=== PATIENT | female | born 1960 | race Caucasian/White ===

== ENCOUNTER 2017-11-23 06:26 | Day surgery (SDC) | payer BC ==
[~2017-11-23 06:26] MED LIST: Lactated Ringers 1,000 ML IV SCH
[2017-11-23] MEDS ORDERED: Propofol 200 MG/20 ML SDV ONE (07:47)
[2017-11-23] MEDS ORDERED: fentaNYL 100 MCG/2 ML SDV ONE (07:47)
--- NOTE | 2017-11-23 09:20 | OR ---
PREOPERATIVE DIAGNOSES: 1. Positive FIT test. 2. Family history of colon cancer - father. POSTOPERATIVE DIAGNOSIS: Normal colonoscopic exam. PROCEDURE PROPOSED: Total flexible colonoscopy. PROCEDURE DONE: Total flexible colonoscopy. INDICATION: This is a 57-year-old female who was found to have a positive FIT test. She also has a family history of father with colon cancer and it has been 5 years since her last exam, so she was recommended to come in for evaluation. TECHNIQUE: The patient brought to the endoscopy suite, placed in left lateral decubitus position. She was sedated per REVERBERATORY FURNACE OPERATOR with propofol. The flexible video colonoscope was then passed transanally and under visualization, advanced to the cecum. Examination revealed a normal ascending, transverse, descending, sigmoid, and rectal colon. There was no evidence of any polyps, diverticulosis, colitis, or any significant hemorrhoids noted. The scope was then withdrawn. The patient tolerated procedure well. FINAL IMPRESSION: Essentially normal colonoscopic exam. PLAN: The patient is reassured. [place] that she should continue with colonic surveillance every 5 years hereafter due to her family history of colon cancer. SCM: 11/23/2017 08:12:43 MODL: 11/23/2017 08:46:07 /[id number]
== END 2017-11-23 09:05 | disposition home or self-care (01) ==
LOC: VM.SDS 06:26
PROVIDERS: ATTEND Surgery
DX: R19.5 Other fecal abnormalities (principal); E78.5 Hyperlipidemia, unspecified; E55.9 Vitamin D deficiency, unspecified; E11.9 Type 2 diabetes mellitus without complications; E83.52 Hypercalcemia; G47.33 Obstructive sleep apnea (adult) (pediatric); I10 Essential (primary) hypertension; M81.0 Age-related osteoporosis without current pathological fracture; Z79.84 Long term (current) use of oral hypoglycemic drugs; Z79.899 Other long term (current) drug therapy; Z86.010 Personal history of colon polyps; Z80.0 Family history of malignant neoplasm of digestive organs; Z88.0 Allergy status to penicillin; Z88.8 Allergy status to other drugs, medicaments and biological substances; Z90.11 Acquired absence of right breast and nipple; Z90.710 Acquired absence of both cervix and uterus; Z98.890 Other specified postprocedural states; Z87.891 Personal history of nicotine dependence
CPT/HCPCS: 45378; 82962; J2704; J3010; J7120

== ENCOUNTER 2017-12-15 19:02 | Emergency (ER) | payer BC ==
[2017-12-15] MEDS ORDERED: Sodium Chloride 0.9% 10 ML Syringe FLUSH PRN (19:15)
[2017-12-15] MEDS ORDERED: Lactated Ringers 1,000 ML IV ONE (19:16)
--- NOTE | 2017-12-15 19:28 | EDM.PDOC ---
ED HPI GENERAL MEDICAL PROBLEM - General Chief Complaint: General Stated Complaint: headache, sore throat, fever Time Seen by Provider: 12/15/17 19:07 Source of Information: Reports: Patient, RN, RN Notes Reviewed History Limitations: Reports: No Limitations - History of Present Illness INITIAL COMMENTS - FREE TEXT/NARRATIVE: Patient presents to the ED at [facility] with a one day history of a sore throat, and a headache that started today. She also has a dry, nonproductive cough. She states she has night sweats. She feels warm but did not take her temperature at home. No close family members or contacts with similar symptoms. Patient denies any N/V/D. She feels somewhat SOB during her coughing spells. She is trying to stay well hydrated with good PO fluid intake. No chest pain. No focal neurological deficits. She denies any eye or ear symptoms. No sinus pressure or pain. Onset Date: 12/14/17 Headache Pain Score (Numeric/FACES): 5 - Related Data Allergies Allergy/AdvReac Type Severity Reaction Status Date / Time lisinopril Allergy Cough Verified 12/15/17 19:10 Penicillins Allergy Itching Verified 12/15/17 19:10 Home Meds: Home Meds 5-Hydroxytryptophan [5-Htp] 200 mg PO DAILY 11/15/17 [History] Aspirin [Halfprin] 81 mg PO DAILY 11/15/17 [History] Biotin 5 g PO BID 11/15/17 [History] Cholecalciferol (Vitamin D3) [Vitamin D3] 400 unit PO DAILY 11/15/17 [History] Cyanocobalamin (Vitamin B-12) [Vitamin B-12] 1,000 mcg PO DAILY 11/15/17 [ History] Flaxseed Oil [Flaxseed] 1,000 mg PO DAILY 11/15/17 [History] Losartan [Cozaar] 100 mg PO DAILY 11/15/17 [History] Multivitamin [Multivitamins] 1 tab PO DAILY 11/15/17 [History] Simvastatin [Zocor] 10 mg PO BEDTIME 11/15/17 [History] glipiZIDE [Glucotrol XL] 5 mg PO DAILY 11/15/17 [History] metFORMIN HCl [Metformin HCl] 1,000 mg PO BID 11/15/17 [History] Empagliflozin [Jardiance] 1 tab PO DAILY 12/15/17 [History] Past Medical History Cardiovascular History: Reports: High Cholesterol, Hypertension Respiratory History: Reports: Sleep Apnea, Other (See Below) Other Respiratory History: reactive airway not asthma Gastrointestinal History: Reports: Colon Polyp, Other (See Below) Other Gastrointestinal History: + FIT. fm hx gi malignacy. 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 Dermatologic History: Reports: None, Other (See Below) Other Dermatologic History: skin tag - Past Surgical History HEENT Surgical History: Reports: LASIK Cardiovascular Surgical History: Reports: None GI Surgical History: Reports: Colonoscopy Female Surgical History: Reports: Hysterectomy Endocrine Surgical History: Reports: None Neurological Surgical History: Reports: None Musculoskeletal Surgical History: Reports: None Oncologic Surgical History: Reports: Mastectomy Dermatological Surgical History: Reports: Other (See Below) Social & Family History - Tobacco Use Smoking Status *Q: Never Smoker ED ROS GENERAL - Review of Systems Review Of Systems: ROS reveals no pertinent complaints other than HPI. ED EXAM, GENERAL - Physical Exam Exam: See Below Exam Limited By: No Limitations General Appearance: Alert, No Apparent Distress Eye Exam: Bilateral Eye: Normal Inspection (watery discharge), PERRL Ears: Normal External Exam, Normal Canal, Normal TMs Ear Exam: Bilateral Ear: TM normal Nose: Normal Inspection Throat/Mouth: Other (posterior oropharyngeal erythema with mild exudate on the right) Neck: Supple, Lymphadenopathy (L), Lymphadenopathy (R) Respiratory/Chest: No Respiratory Distress, Rhonchi (scattered), Other (lung sounds are very coarse throughout). No: Wheezing Cardiovascular: Normal Peripheral Pulses, No Edema, Tachycardia Peripheral Pulses: 2+: Radial (L), Radial (R) GI/Abdominal: Normal Bowel Sounds, Soft, Non-Tender Neurological: Alert, Oriented Skin Exam: Warm, Dry, Intact, Normal Color Course - Vital Signs Last Recorded V/S: Last Vital Signs Temp 39.2 C H 12/15/17 19:07 Pulse 127 H 12/15/17 19:07 Resp 18 12/15/17 19:07 BP 177/96 H 12/15/17 19:07 Pulse Ox 95 12/15/17 19:07 - Orders/Labs/Meds Orders: Active Orders 24 hr Category Date Time Status Chest 2V [CR] Stat Exams 12/15/17 19:12 Taken CULTURE BLOOD [BC] Stat Lab 12/15/17 19:13 Ordered CULTURE BLOOD [BC] Stat Lab 12/15/17 20:17 Results INFLUENZA A+B AG SCREEN [RM] Stat Lab 12/15/17 19:15 Ordered LACTIC ACID [CHEM] Stat Lab 12/15/17 19:13 Ordered STREP SCRN A RAPID W CULT CONF [RM] Stat Lab 12/15/17 19:15 Ordered UA W/MICROSCOPIC [URIN] Stat Lab 12/15/17 19:26 Ordered Sodium Chloride 0.9% [Saline Flush] Med 12/15/17 19:15 Active 10 ml FLUSH ASDIRECTED PRN Blood Culture x2 Reflex Set [OM.PC] Stat Oth 12/15/17 19:13 Ordered Peripheral IV Insertion Adult [OM.PC] Routine Oth 12/15/17 19:15 Ordered Medication Orders Sodium Chloride (Saline Flush) 10 ml FLUSH ASDIRECTED PRN PRN Reason: Keep Vein Open Labs: Laboratory Tests 12/15/17 12/15/17 12/15/17 Range/Units 19:26 20:17 20:17 WBC 19.5 H (4.0-10.0) x10^3/uL RBC 4.54 (4.00-5.50) x10^6/uL Hgb 13.3 (12.0-16.0) g/dL Hct 41.1 (33.0-47.0) % MCV 90.5 (78.0-93.0) fL MCH 29.3 (26.0-32.0) pg MCHC 32.4 (32.0-36.0) g/dL RDW Coeff of Mukul 13.7 (10.0-15.0) % Plt Count 208 (130-400) x10^3/uL Add Manual Diff Yes Neutrophils % (Manual) 82 H (50-80) % Band Neutrophils % 4 (0-6) % Lymphocytes % (Manual) 7 L (25-50) % Monocytes % (Manual) 5 (2-11) % Eosinophils % (Manual) 2 (0-4) % Vacuolated Monocytes 2+ moderate H Toxic Granulation Rare Platelet Estimate Adequate Giant Platelets Rare H Sodium 140 (136-145) mmol/L Potassium 4.4 (3.5-5.1) mmol/L Chloride 102 (98-107) mmol/L Carbon Dioxide 22 (21-32) mmol/L Anion Gap 20.4 H (10-20) mmol/L BUN 10 (7-18) mg/dL Creatinine 0.8 (0.55-1.02) mg/dL Est Cr Clr Drug Dosing TNP Estimated GFR (MDRD) > 60 Glucose 151 H (74-106) mg/dL Calcium 10.1 (8.5-10.1) mg/dL C-Reactive Protein 3.6 H (<=0.9) mg/dL Urine Color Light yellow (YELLOW) Urine Appearance Clear (CLEAR) Urine pH 5.0 (5.0-8.0) Ur Specific [place] <=1.005 Urine Protein Negative (NEGATIVE) mg/dL Urine Glucose (UA) 500 H (NEGATIVE) mg/dL Urine Ketones Trace H (NEGATIVE) mg/dL Urine Occult Blood Negative (NEGATIVE) Urine Nitrite Negative (NEGATIVE) Urine Bilirubin Negative (NEGATIVE) Urine Urobilinogen 0.2 (0.2) EU/dL Ur Leukocyte Esterase Trace H (NEGATIVE) Urine RBC 0-5 (NOT SEEN) /HPF Urine WBC 0-5 (NOT SEEN) /HPF Ur Squamous Epith Cells Rare (NEGATIVE) /HPF Urine Bacteria Rare (NEGATIVE) /HPF Urine Mucus Not seen (NEGATIVE) /LPF Meds: Medications Generic Name Dose Route Start Last Admin Trade Name Freq PRN Reason Stop Dose Admin Sodium Chloride 10 ml 12/15/17 19:15 Saline Flush FLUSH ASDIRECTED PRN Keep Vein Open Discontinued Medications Generic Name Dose Route Start Last Admin Trade Name Freq PRN Reason Stop Dose Admin Ceftriaxone Sodium 1 gm/ 0 gm 12/15/17 20:01 Lidocaine HCl 2.1 ml IM 12/15/17 20:02 ONETIME ONE Gentamicin Sulfate 80 mg 12/15/17 20:03 12/15/17 20:09 Gentamicin IM 12/15/17 20:04 80 mg ONETIME ONE Administration Lactated Ringer's 1,000 mls @ 999 mls/hr 12/15/17 19:16 Ringers, Lactated IV 12/15/17 20:16 ONETIME ONE - Radiology Interpretation Free Text/Narrative:: CXR: No acute process - see scanned report in EMR Departure - Departure Time of Disposition: 20:59 Disposition: Home, Self-Care 01 Condition: Good Clinical Impression: Strep pharyngitis - Discharge Information Instructions: Strep Throat Referrals: Lou Hoskins MD [Primary Care Provider] - Forms: ED Department Discharge Additional Instructions: 1. Stay well hydrated and rest 2. Take antibiotics for the full coarse, even if you feel better 3. LOTS of water 4. Change out and buy a new toothbrush 5. See your Primary as symptoms warrant 6. Call us with any questions/concerns - Problem List Review Problem List Initiated/Reviewed/Updated: Yes - My Orders Last 24 Hours: My Active Orders 12/15/17 19:12 Chest 2V [CR] Stat 12/15/17 19:13 CULTURE BLOOD [BC] Stat LACTIC ACID [CHEM] Stat Blood Culture x2 Reflex Set [OM.PC] Stat 12/15/17 19:15 INFLUENZA A+B AG SCREEN [RM] Stat STREP SCRN A RAPID W CULT CONF [RM] Stat Sodium Chloride 0.9% [Saline Flush] 10 ml FLUSH ASDIRECTED PRN Peripheral IV Insertion Adult [OM.PC] Routine 12/15/17 19:26 UA W/MICROSCOPIC [URIN] Stat 12/15/17 20:17 CULTURE BLOOD [BC] Stat - Assessment/Plan Last 24 Hours: My Active Orders 12/15/17 19:12 Chest 2V [CR] Stat 12/15/17 19:13 CULTURE BLOOD [BC] Stat LACTIC ACID [CHEM] Stat Blood Culture x2 Reflex Set [OM.PC] Stat 12/15/17 19:15 INFLUENZA A+B AG SCREEN [RM] Stat STREP SCRN A RAPID W CULT CONF [RM] Stat Sodium Chloride 0.9% [Saline Flush] 10 ml FLUSH ASDIRECTED PRN Peripheral IV Insertion Adult [OM.PC] Routine 12/15/17 19:26 UA W/MICROSCOPIC [URIN] Stat 12/15/17 20:17 CULTURE BLOOD [BC] Stat
[2017-12-15] MEDS ORDERED: cefTRIAXone 1 GM, Lidocaine 1% 2.1 ML IM ONE ×2 (20:01)
[2017-12-15] MEDS ORDERED: Gentamicin 40 MG/ML 2 ML Vial IM ONE (20:03)
[2017-12-15 20:38] LABS: CHLORIDE,CL 102 mmol/L (98-107); SODIUM,NA 140 mmol/L (136-145)
[2017-12-15] MEDS ORDERED: Take Home: Azithromycin 250 MG, 2 Tab Pack PO ONE (21:01)
== END 2017-12-15 21:15 | disposition home or self-care (01) ==
LOC: VM.ED 19:02
DX: J02.0 Streptococcal pharyngitis (principal); I10 Essential (primary) hypertension; Z88.8 Allergy status to other drugs, medicaments and biological substances; Z88.0 Allergy status to penicillin; Z79.82 Long term (current) use of aspirin
CPT/HCPCS: 36415; 71046; 80048; 81001; 85025; 86140; 87040; 87804; 87880; 96372; 99284; A9270; J1580

== ENCOUNTER 2023-02-24 07:14 | Day surgery (SDC) | payer BC ==
[2023-02-24] MEDS ORDERED: Propofol 200 MG/20 ML SDV ONE ×2 (08:00→09:28)
[2023-02-24] MEDS ORDERED: fentaNYL 100 MCG/2 ML SDV ONE (08:00)
== END 2023-02-24 11:05 | disposition home or self-care (01) ==
LOC: VM.SDS 07:14
PROVIDERS: ATTEND Family Medicine
DX: Z12.11 Encounter for screening for malignant neoplasm of colon (principal); D12.4 Benign neoplasm of descending colon; E78.00 Pure hypercholesterolemia, unspecified; I10 Essential (primary) hypertension; E11.9 Type 2 diabetes mellitus without complications; M81.0 Age-related osteoporosis without current pathological fracture; E55.9 Vitamin D deficiency, unspecified; F39 Unspecified mood [affective] disorder; G47.33 Obstructive sleep apnea (adult) (pediatric); E66.9 Obesity, unspecified; Z80.0 Family history of malignant neoplasm of digestive organs; Z90.710 Acquired absence of both cervix and uterus; Z79.84 Long term (current) use of oral hypoglycemic drugs; Z79.899 Other long term (current) drug therapy; Z87.891 Personal history of nicotine dependence; Z88.0 Allergy status to penicillin; Z88.8 Allergy status to other drugs, medicaments and biological substances; Z68.31 Body mass index [BMI] 31.0-31.9, adult
CPT/HCPCS: 00811; 82947; J2704; J3010; J7120

== ENCOUNTER 2023-06-22 04:25 | Emergency (ER) | payer BC ==
[2023-06-22] MEDS ORDERED: Sodium Chloride 0.9% 10 ML Syringe FLUSH PRN (04:46)
[2023-06-22] MEDS ORDERED: Acetaminophen 500 MG Tab PO ONE (04:48)
[2023-06-22] MEDS ORDERED: Sodium Chloride 0.9% 1,000 ML IV SCH (05:00)
[2023-06-22 05:16] LABS: BASOPHILS PERCENT AUTO 0.2 % (0.2-1.2); HEMATOCRIT 32.7 % (33.0-47.0); HEMOGLOBIN 11.2 g/dL (12.0-16.0); IMMATURE GRAN ABSOLUTE AUTO 0.05 x10^3/uL (0.00-0.07); LYMPHOCYTES ABSOLUTE AUTO 0.8 x10^3/uL (1.0-4.8); LYMPHOCYTES PERCENT AUTO 4.2 % (25.0-50.0); MEAN CORPUSCULAR HEMOGLOBIN 29.2 pg (26.0-32.0); MEAN CORPUSCULAR HGB CONC 34.3 g/dL (32.0-36.0); MEAN CORPUSCULAR VOLUME 85.4 fL (78.0-93.0); MONOCYTES ABSOLUTE AUTO 1.2 x10^3/uL (0.0-0.8); MONOCYTES PERCENT AUTO 5.8 % (2.0-11.0); NEUTROPHILS ABSOLUTE AUTO 17.9 x10^3/uL (1.8-7.7); NEUTROPHILS PERCENT AUTO 89.5 % (50.0-80.0); PLATELET COUNT,PLT 251 x10^3/uL (130-400); RED BLOOD CELL COUNT 3.83 x10^6/uL (4.00-5.50)
[2023-06-22 05:35] LABS: INR 1.1 (0.9-1.1); PROTHROMBIN TIME 11.4 SEC (9.5-12.2); PTT,PARTIAL THROMBOPLSTIN TIME 27.2 SEC (23.6-33.6)
[2023-06-22 05:48] LABS: A/G RATIO 0.9; ALBUMIN 3.6 g/dL (3.4-5.0); BILIRUBIN TOTAL 0.5 mg/dL (0.2-1.0); C-REACTIVE PROTEIN 10.2 mg/dL (<=0.50); CALCIUM 8.9 mg/dL (8.5-10.1); CREATININE 0.9 mg/dL (0.55-1.02); EST CRCL DRUG DOSING (CG) 56.82 mL/min; MAGNESIUM 1.5 mg/dL (1.8-2.4); POTASSIUM,K 3.9 mmol/L (3.5-5.1); PROTEIN TOTAL,TP 7.6 g/dL (6.4-8.2); TSH ULTRASENSITIVE 0.392 uIU/mL (0.358-3.74)
[2023-06-22 05:53] LABS: ANION GAP 17.9 mmol/L (5-15); LACTIC ACID 2.5 mmol/L (0.4-2.0)
[2023-06-22 06:01] LABS: CORONAVIRUS COVID-19 NAA NEGATIVE (NEGATIVE); INFLUENZA A NAA NEGATIVE (NEGATIVE); INFLUENZA B NAA NEGATIVE (NEGATIVE); RESPIRATORY SYNCYTIAL VIR NAA NEGATIVE (NEGATIVE)
[2023-06-22] MEDS ORDERED: cefTRIAXone 1 GM Vial IVPUSH ONE (06:03)
[2023-06-22] MEDS ORDERED: Sodium Chloride 0.9% 1,000 ML IV ONE (06:09)
[2023-06-22 07:31] LABS: APPEARANCE,URINE SLIGHTLY CLOUDY (CLEAR); BILIRUBIN,URINE NEGATIVE (NEGATIVE); COLOR,URINE YELLOW (YELLOW); GLUCOSE,URINE NEGATIVE (NEGATIVE); KETONES,URINE 15 mg/dL (NEGATIVE); LEUKOCYTE ESTERASE,URINE TRACE (NEGATIVE); NITRITE,URINE POSITIVE (NEGATIVE); OCCULT BLOOD,URINE NEGATIVE (NEGATIVE); PROTEIN,URINE NEGATIVE (NEGATIVE); UROBILINOGEN,URINE 0.2 EU/dL (0.2)
[2023-06-22 07:52] LABS: RBC,URINE 0-5 /HPF (NOT SEEN)
[2023-06-22 07:53] LABS: AMORPHOUS SEDIMENT,URINE FEW; BACTERIA,URINE FEW /HPF (NOT SEEN); MUCUS,URINE FEW /LPF (NOT SEEN); SQUAMOUS EPITHELIAL CELLS,UR FEW /HPF (NOT SEEN)
== END 2023-06-22 08:55 | disposition home or self-care (01) ==
LOC: VM.ED 04:25
DX: J02.0 Streptococcal pharyngitis (principal); E86.0 Dehydration; N39.0 Urinary tract infection, site not specified; E87.20 Acidosis, unspecified; E11.9 Type 2 diabetes mellitus without complications; E78.00 Pure hypercholesterolemia, unspecified; I10 Essential (primary) hypertension; Z79.82 Long term (current) use of aspirin; Z79.899 Other long term (current) drug therapy; Z88.0 Allergy status to penicillin; Z88.8 Allergy status to other drugs, medicaments and biological substances; Z68.29 Body mass index [BMI] 29.0-29.9, adult
CPT/HCPCS: 0241U; 36415; 71045; 80053; 81001; 82550; 83605; 83735; 84145; 84443; 84484; 85025; 85610; 85730; 86140; 87040; 87086; 87088; 87186; 87651-QW; 93005; 93010; 96361; 96374; 99284; 99284-25; A9270-GY; J0696; J7030

== ENCOUNTER 2023-06-22 20:36 | Observation (INO) | payer BC ==
[2023-06-22] MEDS ORDERED: Sodium Chloride 0.9% 1,000 ML IV ONE (20:58)
[2023-06-22] MEDS ORDERED: Ibuprofen 200 MG Tab PO PRN (20:59)
[2023-06-22] MEDS ORDERED: Naloxone 0.4 MG/ML SDV IVPUSH PRN (20:59)
[2023-06-22] MEDS ORDERED: HYDROmorphone 1 MG/ML Syringe IVPUSH ONE (20:59)
[2023-06-22 21:01] LABS: BASOPHILS ABSOLUTE AUTO 0.1 x10^3/uL (0.0-0.2); BASOPHILS PERCENT AUTO 0.3 % (0.2-1.2); EOSINOPHILS PERCENT AUTO 0.1 % (0.0-4.0); HEMOGLOBIN 11.6 g/dL (12.0-16.0); LYMPHOCYTES ABSOLUTE AUTO 0.9 x10^3/uL (1.0-4.8); LYMPHOCYTES PERCENT AUTO 5.5 % (25.0-50.0); MEAN CORPUSCULAR HEMOGLOBIN 28.6 pg (26.0-32.0); MEAN CORPUSCULAR HGB CONC 33.1 g/dL (32.0-36.0); MEAN CORPUSCULAR VOLUME 86.4 fL (78.0-93.0); MONOCYTES ABSOLUTE AUTO 1.3 x10^3/uL (0.0-0.8); MONOCYTES PERCENT AUTO 7.6 % (2.0-11.0); NEUTROPHILS ABSOLUTE AUTO 14.3 x10^3/uL (1.8-7.7); NEUTROPHILS PERCENT AUTO 85.9 % (50.0-80.0); PLATELET COUNT,PLT 223 x10^3/uL (130-400); RED BLOOD CELL COUNT 4.05 x10^6/uL (4.00-5.50); WHITE BLOOD CELL COUNT,WBC 16.6 x10^3/uL (4.0-10.0)
[2023-06-22 21:18] LABS: ALANINE AMINOTRANSFERASE,ALT 36 U/L (14-59); ALBUMIN 3.5 g/dL (3.4-5.0); ALKALINE PHOSPHATASE 71 U/L (46-116); ANION GAP 15.9 mmol/L (5-15); ASPARTATE AMNIOTRANSFERASE,AST 20 U/L (15-37); BILIRUBIN TOTAL 0.3 mg/dL (0.2-1.0); BLOOD UREA NITROGEN,BUN 8 mg/dL (7-18); C-REACTIVE PROTEIN 20.33 mg/dL (<=0.50); CALCIUM 9.2 mg/dL (8.5-10.1); CARBON DIOXIDE,CO2 23 mmol/L (21-32); CHLORIDE,CL 97 mmol/L (98-107); CREATININE 0.9 mg/dL (0.55-1.02); ESTIMATED GFR 71 mL/min (>=60); GLUCOSE RANDOM 226 mg/dL (70-99); POTASSIUM,K 3.9 mmol/L (3.5-5.1); PROTEIN TOTAL,TP 7.9 g/dL (6.4-8.2); SODIUM,NA 132 mmol/L (136-145)
[2023-06-22] MEDS: Take Home: Acetaminophen/HYDROcodone 325-10 MG, 5 Tab Pack PO ONE (22:13)
[2023-06-22] MEDS ORDERED: Ondansetron 4 MG/2 ML SDV IV PRN (22:50)
[2023-06-22] MEDS ORDERED: Sodium Chloride 0.9% 10 ML Syringe FLUSH PRN (22:50)
[2023-06-22] MEDS ORDERED: Acetaminophen 325 MG Tab PO PRN (22:50)
[2023-06-22] MEDS ORDERED: Ondansetron 4 MG Tab.DIS PO PRN (22:50)
[2023-06-22] MEDS ORDERED: Sodium Chloride 0.9% 1,000 ML IV SCH (23:00)
[2023-06-22] MEDS ORDERED: TIRZEPATIDE 12.5 MG/0.5 ML SQ SCH (23:15)
[2023-06-23] MEDS: Acetaminophen/HYDROcodone 325-10 MG Tab PO PRN ×2 (00:06→04:35)
[2023-06-23] MEDS ORDERED: HYDROmorphone 1 MG/ML Syringe IVPUSH PRN (01:00)
[2023-06-23] MEDS: Take Home: Acetaminophen/HYDROcodone 325-10 MG, 5 Tab Pack PO ONE (05:40)
[2023-06-23 07:06] LABS: BASOPHILS ABSOLUTE AUTO 0.1 x10^3/uL (0.0-0.2); BASOPHILS PERCENT AUTO 0.3 % (0.2-1.2); EOSINOPHILS ABSOLUTE AUTO 0.1 x10^3/uL (0.0-0.5); EOSINOPHILS PERCENT AUTO 0.7 % (0.0-4.0); HEMATOCRIT 31.8 % (33.0-47.0); HEMOGLOBIN 10.5 g/dL (12.0-16.0); IMMATURE GRAN ABSOLUTE AUTO 0.08 x10^3/uL (0.00-0.07); LYMPHOCYTES PERCENT AUTO 12.1 % (25.0-50.0); MEAN CORPUSCULAR HEMOGLOBIN 28.8 pg (26.0-32.0); MEAN CORPUSCULAR VOLUME 87.1 fL (78.0-93.0); MONOCYTES ABSOLUTE AUTO 1.5 x10^3/uL (0.0-0.8); MONOCYTES PERCENT AUTO 9.3 % (2.0-11.0); NEUTROPHILS ABSOLUTE AUTO 12.7 x10^3/uL (1.8-7.7); NEUTROPHILS PERCENT AUTO 77.1 % (50.0-80.0); PLATELET COUNT,PLT 201 x10^3/uL (130-400); RED BLOOD CELL COUNT 3.65 x10^6/uL (4.00-5.50)
[2023-06-23 07:16] LABS: WHITE BLOOD CELL COUNT,WBC 16.5 x10^3/uL (4.0-10.0)
[2023-06-23 07:26] LABS: A/G RATIO 0.7; ALBUMIN 2.8 g/dL (3.4-5.0); ANION GAP 12.4 mmol/L (5-15); BILIRUBIN TOTAL 0.2 mg/dL (0.2-1.0); C-REACTIVE PROTEIN 18.66 mg/dL (<=0.50); CALCIUM 8.3 mg/dL (8.5-10.1); CREATININE 0.7 mg/dL (0.55-1.02); EST CRCL DRUG DOSING (CG) 73.06 mL/min; POTASSIUM,K 3.4 mmol/L (3.5-5.1); PROTEIN TOTAL,TP 6.8 g/dL (6.4-8.2)
[2023-06-23] MEDS ORDERED: cefTRIAXone 1 GM Vial IVPUSH SCH (09:00)
[2023-06-23] MEDS ORDERED: Aspirin 81 MG Tab.EC PO SCH (09:00)
[2023-06-23] MEDS ORDERED: Cyanocobalamin (Vitamin B12) 1,000 MCG Tab PO SCH (09:00)
[2023-06-23] MEDS ORDERED: Losartan 50 MG Tab PO SCH (09:00)
[2023-06-23] MEDS ORDERED: Cholecalciferol (Vitamin D3) 10 MCG Tab PO SCH (09:00)
[2023-06-23] MEDS ORDERED: metFORMIN 500 MG Tab PO SCH (09:00)
[2023-06-23] MEDS ORDERED: Multivitamin Tab PO SCH (09:00)
[2023-06-23] MEDS ORDERED: FLAXSEED OIL 1000 MG PO SCH (09:00)
[2023-06-23] MEDS ORDERED: BIOTIN 5 MG PO SCH (09:00)
[2023-06-23] MEDS ORDERED: Simvastatin 10 MG Tab PO SCH (21:00)
== END 2023-06-23 10:30 | disposition home or self-care (01) ==
LOC: VM.ED 20:36 → VM.MS 22:32
PROVIDERS: ADMIT Physician Assistant Medical; ATTEND Physician Assistant Medical
DX: M54.50 Low back pain, unspecified (principal); J02.0 Streptococcal pharyngitis; N30.00 Acute cystitis without hematuria; E78.00 Pure hypercholesterolemia, unspecified; G47.30 Sleep apnea, unspecified; I10 Essential (primary) hypertension; M81.0 Age-related osteoporosis without current pathological fracture; E11.9 Type 2 diabetes mellitus without complications; E66.9 Obesity, unspecified; Z88.0 Allergy status to penicillin; Z88.8 Allergy status to other drugs, medicaments and biological substances; Z79.82 Long term (current) use of aspirin; Z79.84 Long term (current) use of oral hypoglycemic drugs; Z79.899 Other long term (current) drug therapy; Z87.891 Personal history of nicotine dependence
CPT/HCPCS: 36415; 80053; 82947; 83605; 84145; 85025; 86140; 96374; 96375; 99223; 99239; 99284-25; A9270-GY; G0378; J0696; J1170; J7030

== ENCOUNTER 2023-06-27 09:34 | Emergency (ER) | payer BC | END 2023-06-27 11:38 | disposition home or self-care (01) | LOC: VM.ED 09:34 | DX: K59.00 Constipation, unspecified (principal); I10 Essential (primary) hypertension; E78.00 Pure hypercholesterolemia, unspecified; E11.9 Type 2 diabetes mellitus without complications; E66.9 Obesity, unspecified; Z88.0 Allergy status to penicillin; Z88.8 Allergy status to other drugs, medicaments and biological substances; Z79.82 Long term (current) use of aspirin; Z79.899 Other long term (current) drug therapy; Z79.84 Long term (current) use of oral hypoglycemic drugs; Z90.710 Acquired absence of both cervix and uterus | CPT/HCPCS: 74019; 99283; 99284 ==